=== PATIENT | male | born 1960 | race Caucasian/White ===

== ENCOUNTER 2025-04-11 07:31 | Outpatient (CLI) | payer MEDICARE, OTHER, SELFPAY ==
--- NOTE | ~2025-04-11 | PE_ITS ---
EXAMINATION: PET_PETPSMAST_PT DATE: 04/11/2025 10:52 INDICATION: Prostate cancer TECHNIQUE: 5.394 mCi of Illucix Ga-68([id number]) was administered i.v. Low dose computed tomography (CT) images were acquired from the base of the brain to the base of the brain to the proximal thighs for attenuation correction and anatomic localization. Positron emission tomography (PET) images were acquired in the same distribution beginning 71 minutes after injection. Images including fused PET/CT images were reconstructed in axial, coronal, and sagittal planes. Automated exposure control technique was employed. The dose-length product was 1197.21mGy-cm. COMPARISON: None FINDINGS: Head/neck: Typical pattern of symmetric physiologic increased activity in the lacrimal, parotid and submandibular glands as well as along the mucosa of the nasal and oral cavities, pharynx and hypopharynx. No pathologically enlarged cervical lymphadenopathy or suspicious foci of increased uptake in the visualized head or neck. Chest: No suspicious pulmonary nodules, pneumonia, pulmonary edema or pleural effusion. Heart size is normal. Atherosclerotic coronary artery calcification is. No pericardial or pleural effusion. Thoracic aorta is normal in caliber. No pathologically enlarged thoracic lymphadenopathy. Abdomen/pelvis/proximal thighs: Physiologic renal accumulation and excretion of activity in the kidneys, bladder and along portions of ureters. Bilateral nonobstructing nephrolithiasis with 6 stones measuring up to form a clustered in a lower pole calyx of the left kidney and 1-2 mm stone in the mid right kidney. Prostatomegaly measuring 4.6 x 3.6 cm. There is a small focus of increased uptake in the posterior left prostate with maximal SUV of 9.1 consistent with primary prostate cancer. Normal degree and slightly heterogenous pattern of increased uptake throughout the liver and spleen without radiologic correlate or dominant PSMA avid lesion. 3.6 cm fluid attenuation hepatic cyst. There are a couple additional subcentimeter hypodense hepatic lesions which are too small to definitively characterize but without abnormal PSMA activity to suggest metastatic disease most likely either additional cysts or hemangiomas. The gallbladder, pancreas and bilateral adrenal glands are normal. Moderate uptake scattered throughout the bowels with typical duodenal and proximal jejunal predominance and without radiologic correlate, also likely physiologic. Normal appendix. A few diverticula at the junction of the descending and sigmoid colon without adjacent from trace stranding to suggest diverticulitis. No other abnormal foci of increased uptake or pathologically enlarged lymphadenopathy in the abdomen, pelvis or proximal thighs. Musculoskeletal: Mild cervical, thoracic and lumbar spondylosis. Moderate bilateral hip osteoarthritis. No suspicious lytic, blastic or abnormally PSMA avid bone lesions. IMPRESSION: 1. Small focus of increased activity at the left posterior aspect of the mildly enlarged prostate consistent with primary prostate cancer. No PSMA avid lesions suspicious for metastatic disease. 2. Bilateral nonobstructing nephrolithiasis. Reviewed, dictated and finalized at location A. TAL MARKETING INTERN IMPRESSION: 1. Small focus of increased activity at the left posterior aspect of the mildly enlarged prostate consistent with primary prostate cancer. No PSMA avid lesion s suspicious for metastatic disease. 2. Bilateral nonobstructing nephrolithiasis.
--- OUTSIDE RECORDS SUMMARY | 2025-04-11 07:37 | XMS_ITS | Encounter Summary ---
Author Organization [facility] Health Address [address] [place] [address] Care Team Providers Care Calibration Checker Name Role Phone Unavailable Primary Care Provider Unavailabl e Prior Encounters Date Type Department Care Team Description 03/25/2023 10:00 AM BOTTLE TESTER Consult [facility] [address] [address] [phone] Bert Virk, VALERIA Plan of Treatment Not on file Procedures Procedure Name Priority Date/Time Associated Diagnosis Comments PERIO CONSULT Routine 03/25/2023 10:00 AM BOTTLE TESTER Visit Diagnoses Not on file Insurance [facility] KASANDRA MCDANIEL [id number]
--- OUTSIDE RECORDS SUMMARY | 2025-04-11 07:37 | XMS_ITS | Clinical Summary ---
Author Organization [facility] Health Address [address] [place] [address] Care Team Providers Care Kiln Furniture Saw Tender Name Role Phone Unavailable Primary Care Provider Unavailabl e Medications amLODIPine (NORVASC) 10 mg tablet See Instructions , # 90 EA, 3 total refill(s), Acute 09/15/2022 Active lisinopriL (PRINIVIL,ZESTR IL) 40 mg tablet Be careful if taking OTCs.Take or use exactly as directed.Do not take if . 09/16/2022 Active metFORMIN (GLUCOPHAGE) 1,000 mg tablet Take 1,000 mg by mouth in the morning and 1,000 mg in the evening. Active pravastatin (PRAVACHOL) 20 mg tablet See Instructions , # 90 EA, 3 total refill(s), Acute 09/15/2022 Active Social History Tobacco Use Types Packs/Day Years Used Date Smoking Tobacco: Never Assessed Sex and Gender Information Value Date Recorded Sex Assigned at Not on file Legal Sex Male 12:29 PM PDT Gender Identity Not on file Sexual Orientation Not on file Plan of Treatment Health Maintenance Due Date Last Done Comments Dental Oral Exam 1960 Dental Prophylaxis 1958 Dental X-Ray: Bitewings 1958 Dental X-Ray: Full Mouth 1958 Dental X-Ray: Panoramic 03/26/2026 03/25/2023 [place] [id number] [facility]
--- OUTSIDE RECORDS SUMMARY | 2025-04-11 07:37 | XMS_ITS | Encounter Summary ---
Author Organization [facility] Address [address] [place] [address] Care Team Providers Care Commercial Credit Specialist Name Role Phone Unavailable Primary Care Provider Unavailabl e Encounter Details Date Type Department Care Team (Late st Contact Info) Description 12/09/2023 Lab Requisition [facility] Physician [facility] - DermPath Lab [address] [place] [address] Lizz Flores DO [address] [address] [place] [address] Social History Tobacco Use Types Packs/Day Years Used Date Smoking Tobacco: Never Assessed Comments Unknown Sex and Gender Information Value Date Recorded Sex Assigned at Not on file 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 Gender Identity Not on file Sexual Orientation Not on file documented as of this encounter Plan of Treatment Not on file documented as of this encounter Procedures Procedure Name Priority Date/Time Associated Diagnosis Comments DERMATOPATHOLOGY Routine 12/08/2023 12:0 0 AM CDT documented in this encounter Results * DERMATOPATHOLOGY (12/08/2023 12:00 AM CDT) Case Report Dermatopathology Report Case: [id number] Authorizing Provider: Lizz Flores DO Collected: 12/08/2023 12:00 AM Ordering Location: [facility] Physician [facility] - Received: 12/09/2023 12:01 PM DermPath Lab Pathologist: Leyla Cuellar MD Specimen: Skin, crown of scalp 1:51 PM CDT DERMATOPATHOLOGY LABORATORY Final Diagnosis Specimen A. SKIN, crown of scalp: SQUAMOUS CELL CARCINOMA, WELL DIFFERENTIATED (C44.42) 1:51 PM CDT DERMATOPATHOLOGY LABORATORY at 1351 CDT Clinical History R/O SCC 1:51 PM CDT DERMATOPATHOLOGY LABORATORY Gross Description Specimen A: Received is one formalin filled container labeled with the patient's name and designated crown of scalp. The specimen consists of a shave biopsy measuring 11x8x2 mm. Jar 0. 1:51 PM CDT DERMATOPATHOLOGY LABORATORY Microscopic Description Specimen A. SKIN, crown of scalp: Arising in the epidermis and extending into the dermis there are irregularly shaped aggregates of keratinocytes showing evidence of premature cornification. 1:51 PM CDT DERMATOPATHOLOGY LABORATORY Disclaimer An external and internal positive and negative controls are appropriate for the histochemical, immunohistochemical and immunofluorescence stain(s) in this case (if any), except where stated explicitly. The performance characteristics of the stain(s) cited in this report were developed and its performance characteristic determined by the Dermatopathology Laboratory at [facility], directed by Dr. Morteza Burton. These tests need not be, and therefore are not, approved by the [place] Food and Drug Administration. The tests are used for clinical purposes. Billing Codes Specimen Charges Stain Charges 66498 1 1:51 PM CDT DERMATOPATHOLOGY LABORATORY Embedded Images 1:51 PM CDT DERMATOPATHOLOGY LABORATORY Pathology/Cytolog y TISSUE SPECIMEN FROM SKIN / Unknown 12/08/2023 12/09/2023 12:01 PM CDT us Lizz Flores DO LAB - PATHOLOGY/CYTOLOGY ORDERABLES Final Result DERMATOPATHOLOGY LABORATORY [facility] - Department of Dermatology [address] [place] [address], [facility] [phone] documented in this encounter Visit Diagnoses Not on filedocumented in this encounter
--- OUTSIDE RECORDS SUMMARY | 2025-04-11 07:37 | XMS_ITS | Clinical Summary ---
Author Organization [facility] Address [address] [place] [address] Care Team Providers Care Boat Engine Mechanic Name Role Phone Unavailable Primary Care Provider Unavailabl e Source Comments [facility] Talk[facility],non-owned Affiliates and Associated Physician Practices is amultiple site organization consisting of ambulatory clinics and hospital sitesin [place], [place], [place] and [place]. This disclosure is being madepursuant to the Care Everywhere program and may not contain all information available regarding this patient. 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 Gender Identity Not on file Sexual Orientation Not on file Plan of Treatment Health Maintenance Due Date Last Done Comments BONE DENSITY TESTING 1960 COLOGUARD (AGES 45-75) - COL ON CA SCREENING 1958 COLON MONITORING 1958 COLONOSCOPY - COLON CA SCREENING 1958 CT COLONOGRAPHY - COLON CA SCREENING 1960 Colorectal Cancer Screening 1958 FIT - COLON CA SCREENING 1958 FLEX SIG - COLON CA SCREENING 1958 LIPID TESTING 1958 MAMMOGRAM 1960 HEPATITIS C SCREENING 06/15/1976 DTAP/TDAP/TD VACCINES (1 - Tdap) 1977 PNEUMOCOCCAL VACCINE 50+ (1 of 1 - PCV) 2008 ZOSTER VACCINE (1 of 2) 2008 DEPRESSION SCREENING 05/18/2024 COVID-19 VACCINE (1 - 2024-2 6 season) 2025 INFLUENZA VACCINE (#1) 2025 Respiratory Syncytial Virus (RSV) Vaccine Pt: or over 60 yrs (1 - 1-dose 75+ series) 2033 HEPATITIS B VACCINE Aged Out No longe r eligible based on patient's age to complete this topic HIB VACCINE Aged Out No longer eligi ble based on patient's age to complete this topic HPV VACCINE Aged Out No longer eligi ble based on patient's age to complete this topic MENINGOCOCCAL (Group B) VACC INE SHARED DECISION-MAKING Aged Out No longer eligibl e based on patient's age to complete this topic MENINGOCOCCAL GROUPS A/C/Y/W VACCINE Aged Out No longer eligible b ased on patient's age to complete this topic [place] [place] [address]
--- OUTSIDE RECORDS SUMMARY | 2025-04-11 07:37 | XMS_ITS | Clinical Summary ---
Author Organization [facility] Address [address] [place] [phone] Care Team Providers Care Event Coordinator Name Role Phone Ernesto Ham MD Primary Care Provider [phone] Allergies No known active allergies Medications amLODIPine (NORVASC) 10 mg tablet 1 Active ascorbic acid (VITAMIN C) 250 mg tablet Take 250 mg by mouth daily Active aspirin 81 mg enteric coated tablet 1 Active cetirizine (ZyrTEC) 10 mg tablet 1 Active cholecalciferol (VITAMIN D-3) 2000 unit tablet Take 1 tablet by mouth daily 0 Active glimepiride (AMARYL) 2 mg tablet 1 Active icosapent ethyL (VASCEPA) 1 gram capsule Take 2 g by mouth 2 (two) times a day 1 Active lisinopriL (PRINIVIL,ZESTR IL) 40 mg tablet Take 40 mg by mouth daily 0 Active metFORMIN XR (GLUCOPHAGE XR) 500 mg 24 hr tablet Take 1,000 mg by mouth 2 times daily 1 Active multivitamin tablet Active neomycin-polymy karlos-HC (CORTISPORIN) otic solution 1 Active pravastatin (PRAVACHOL) 20 mg tablet 1 Active ZOLMitriptan (ZOMIG) 2.5 mg tablet Take 2.5 mg by mouth daily as needed 0 Active fluticasone propionate (Flonase Allergy Relief) 50 mcg/actuation nasal spray Administer 1 spray into each nostril 2 (two) times a day 1 spray 3 1 Active Trulicity 0.75 mg/0.5 mL pen injector 2 Active Jardiance 10 mg tablet 4 Active omega-3 fatty acids (LOVAZA) 1 gram capsule 4 Active dulaglutide (Trulicity) 0.75 mg/0.5 mL pen injector See Instructions, # 2 mL, 5 total refill(s), Hard Stop Notes: refrigerate 4 Active pravastatin (PRAVACHOL) 20 mg tablet See Instructions, # 90 EA, 1 total refill(s), Hard Stop 4 Active amLODIPine (NORVASC) 10 mg tablet Take 1 tablet (10 mg total) by mouth 4 Active Active Problems Problem Noted Date Diagnosed Date Multiple pulmonary nodules 11/11/2023 Personal history of nicotine dependence 11/11/19 24 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 Essential hypertension 12/26/2020 Overweight 12/26/2020 Postnasal drip 12/26/2020 Obstructive sleep apnea 12/26/2020 Cigarette nicotine dependence in remission 12/26 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 05/22/2016 Worried well 05/22/2016 Memory impairment 05/15/2015 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 Overview (08/28/2017): Description: mild age-related dysnomia- no aphasia Surgical History Surgery Date Site/Laterality Comments HEMORROIDECTOMY Medical History Medical History Date Comments Diabetes Family History Medical History Relation Name Comments Alzheimer's disease Brother Family h istory of Alzheimer's disease - Father had AD in his 80s; brother aged 58 has mild cognitive impairment (Added by TW Conv) Alzheimer's disease Father Family h istory of Alzheimer's disease - Father had AD in his 80s; brother aged 58 has mild cognitive impairment (Added by TW Conv) Relation Name Status Comments Brother Father Social History Tobacco Use Types Packs/Day Years Used Date Smoking Tobacco: Former Cigarettes 0 Smokeless Tobacco: Never Tobacco Cessation:Counseling Given: Not Answered Comments:20 pk yr hx AUDIT-C Answer Date Recorded Q1: How often do you have a drink containing alc ohol? Never 12/26/2020 Average Number of Drinks Not on file 021 Q3: How often do you have si x or more drinks on one occasion? 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 Gender Identity Not on file Sexual Orientation Not on file Last Filed Vital Signs Vital Sign Reading Time Taken Comments Blood Pressure 120/80 11/30/2024 2:47 PM CDT Pulse 75 11/30/2024 2:47 PM CDT Temperature 35.8 C (96.5 F) 11/30/2024 2:47 PM CDT Respiratory Rate 16 11/30/2024 2:47 PM CDT Oxygen Saturation 96% 11/30/2024 2:47 PM CDT Inhaled Oxygen Concentration - - Weight 93.9 kg (207 lb) 11/30/2024 2:47 PM CDT Height 182.9 cm (6') 11/30/2024 2:47 PM CDT Body Mass Index 28.07 11/30/2024 2:47 PM CDT Plan of Treatment Health Maintenance Due Date Last Done Comments Colon Cancer Screening-Colonoscopy 1958 Depression Screening 1958 Fall Risk Assessment 1958 Hepatitis C Screening 1958 Prostate Cancer Screening-PSA 1958 Hepatitis B Screening 1976 Pneumococcal vaccine 65+ (1 of 1 - PCV) 2008 Zoster Vaccine (2 of 2) 08/17/2018 06/22/2018 Well Visit 65+ 2023 Covid-19 Vaccine (4 - 2024-2 6 season) 2025 02/09/2021, 06/29/2020, 06/07/2020 Influenza Vaccine (#1) 2025 , 02/09/2021, 02/01/2020, Additional history exists Lung Cancer Screening 09/06/2025 09/05/2024, 024 DTaP/Tdap/Td Vaccine (3 - Td or Tdap) 02/22/2034 02/23/2024, 07/13/2017, 09/13/2004 Abdominal Aortic Aneurysm (A AA) Screen Completed 10/05/2024, 10/07/2022, 09/27/2022, Additional history exists Procedures Procedure Name Priority Date/Time Associated Diagnosis Comments CT LUNG CANCER SCREENING Schedule Routine, Read Routine (OP Routine) 09/05/2024 7:16 AM CDT Personal history of nicotine dependence from Last 3 Months or Most Recently Relevant to Health Maintenance Results * CT Lung Cancer Screening (09/05/2024 7:16 AM CDT) Anatomical Region Laterality Modality Chest N/A Computed Tomogra phy 09/14/2024 8:41 AM CDT Narrative 09/14/2024 8:47 AM CDT EXAM DESCRIPTION: CT LUNG CANCER SCREENING REASON FOR STUDY: Screening CT of the chest in a former smoker with a 36 pack year smoking history. Additional history: None. TECHNIQUE: Low dose CT scan of the chest was performed without intravenous contrast using helical scanning technique. The exam extends from the lung apices through the lung bases. Automatic exposure control was used as a dose optimization technique. NOTE: This study was performed for the specific purposes of lung cancer screening and is not an alternative to diagnostic chest CT. RADIATION DOSE: CT dose index volume (CTDIvol) = 2.89 mGy COMPARISON: CT lung cancer screening 08/21/2023 FINDINGS: SMOKING RELATED LUNG DISEASE: Mild centrilobular pulmonary emphysema. LUNG NODULES: No suspicious pulmonary nodules. CORONARY ARTERY CALCIFICATION: Present. OTHER: Normal heart size. No mediastinal or hilar lymph node enlargement by size criteria. There is a large hepatic cyst. No acute findings in the visualized upper abdomen given low-dose technique. No acute skeletal abnormality. IMPRESSION: No suspicious pulmonary nodules. Mild pulmonary emphysema. Lung-RADS category 1: Negative. Recommendation: Low dose Screening CT of chest in 12 months. THIS IS AN ELECTRONICALLY VERIFIED FINAL REPORT 09/14/2024 8:47 AM - Electronically signed by Tree Betts M.D. JR: Report ID: [id number] Reading Location: [id number] Procedure Note Tree Betts MD - 09/14/2024 EXAM DESCRIPTION: CT LUNG CANCER SCREENING REASON FOR STUDY: Screening CT of the chest in a former smoker with a36 pack year smoking history. Additional history: None. TECHNIQUE: Low dose CT scan of the chest was performed without intravenous contrast using helical scanning technique. The exam extends from the lung apices through the lung bases. Automatic exposure control was used as adose optimization technique. NOTE: This study was performed for the specific purposes of lung cancer screening and is not an alternative to diagnostic chest CT. RADIATION DOSE: CT dose index volume (CTDIvol) = 2.89 mGy COMPARISON: CT lung cancer screening 08/21/2023 FINDINGS: SMOKING RELATED LUNG DISEASE: Mild centrilobular pulmonary emphysema. LUNG NODULES: No suspicious pulmonary nodules. CORONARY ARTERY CALCIFICATION: Present. OTHER: Normal heart size. No mediastinal or hilar lymph nodeenlargement by size criteria. There is a large hepatic cyst. No acute findings in the visualized upper abdomen given low-dose technique. No acute skeletal abnormality. IMPRESSION: No suspicious pulmonary nodules. Mild pulmonary emphysema. Lung-RADS category 1: Negative. Recommendation: Low dose Screening CT of chest in 12 months. THIS IS AN ELECTRONICALLY VERIFIED FINAL REPORT 09/14/2024 8:47 AM - Electronically signed by Tree Betts M.D. JR: Report ID: [id number] Reading Location: [id number] Annabelle Esparza MD IM CT PROCEDURES Final Res ult from Last 3 Months or Most Recently Relevant to Health Maintenance Insurance [facility] [place] [address] [place] [address] [employer] Care Teams Event Coordinator Relationship Specialty Start Date End Date Ernesto Ham MD PCP - General 03/24/17
== END 2025-04-11 07:32 | disposition home or self-care (01) ==
LOC: ANHIMG 07:35
PROVIDERS: PCP Internal Medicine; Visit Provider Urology
DX: C61 Malignant neoplasm of prostate (principal); N20.0 Calculus of kidney
CPT/HCPCS: 78815; A9596